=== PATIENT | female | born 1980 | race Caucasian/White ===

== ENCOUNTER 2020-08-09 19:39 | Emergency (ER) | payer OTHER ==
[2020-08-09] MEDS ORDERED: LORazepam 1 MG TAB PO STA (20:17)
[2020-08-09 21:08] LABS: Glucose,Whole Blood 174 mg/dL (75-99)
--- NOTE | 2020-08-09 22:00 | ED ---
General Adult HPI - General Chief complaint: Syncope Stated complaint: Collapsed, Numbing feeling Time Seen by Provider: 08/09/20 19:55 Source: patient, RN notes reviewed, old records reviewed Mode of arrival: wheelchair Limitations: no limitations - History of Present Illness Initial comments: 39-year-old female patient comes to ED for syncopal episode. Patient reports that she was in the hospital seeing her mother. She reports that her mother has a colostomy bag which is new and she was watched in the process of them changes and cleaning of this was very stressful for her. Patient was that she does not do well watching such medical procedures and the smell was very distressing for her. Patient reports that she felt very weak throughout the hallway and then she passed out and fell to the ground only briefly. Does not believe she hit her head or her neck. Denies any chest pain shortness of breath or any other acute complaints. She reports that she is very anxious. Systemic: Pt denies fatigue, fever/chills, rash. Pt denies weakness, night sweats, weight loss. Neuro: Pt denies headache, visual disturbances, syncope or pre-syncope. HEENT: Pt denies ocular discharge or irritation, otalgia, rhinorrhea, pharyngitis or notable lymphadenopathy. Cardiopulmonary: Pt denies chest pain, SOB, heart palpitations, dyspnea on exe rtion. Abdominal/GI: Pt denies abdominal pain, n/v/d. : Pt denies dysuria, burning w/ urination, frequency/urgency. Denies new onset urinary or bowel incontinence. MSK: Pt denies myalgia, loss of strength or function in extremities. Neuro: Pt denies new onset weakness, paresthesias. - Related Data Home Medications Medication Instructions Recorded Confirmed Calcium/Magnesium/Vitamin D3 1 tab PO DAILY 08/09/20 08/09/20 Multivitamins, Thera [Multivitamin 1 tab PO DAILY 08/09/20 08/09/20 (formulary)] Sertraline [Zoloft] 50 mg PO DAILY 08/09/20 08/09/20 Vitamin C/Biotin [Hair, Skin and 1 tab PO DAILY 08/09/20 08/09/20 Nails] Allergies Allergy/AdvReac Type Severity Reaction Status Date / Time No Known Allergies Allergy Verified 08/09/20 20:45 Review of Systems ROS Statement: Those systems with pertinent positive or pertinent negative responses have been documented in the HPI. ROS Other: All systems not noted in ROS Statement are negative. Past Medical History Past Medical History: No Reported History History of Any Multi-Drug Resistant Organisms: None Reported Past Surgical History: No Surgical Hx Reported Past Psychological History: No Psychological Hx Reported Smoking Status: Never smoker Past Alcohol Use History: None Reported Past Drug Use History: None Reported General Exam - General Exam Comments Initial Comments: Constitutional: NAD, AOX3, Pt has pleasant affect. HEENT: NC/AT, trachea midline, neck supple, no lymphadenopathy. External ears appear normal, without discharge. Mucous membranes moist. Eyes PERRLA, EOM intact. There is no scleral icterus. No pallor noted. Cardiopulmonary: RRR, no murmurs, rubs or gallops, no JVD noted. Lungs CTAB in anterior and posterior eason. No peripheral edema. Abdominal exam: Abdomen soft and non-distended. Abdomen non-tender to palpation in all 4 quadrants. Bowel sounds active in LLQ. No hepatosplenomegaly. No ecchymosis Neuro: CN II-XIIintact. No nuchal rigidity. No raccon eyes, no raphael sign, no hemotympanum. No cervical spinal tenderness. MSK: No posterior calf tenderness bilaterally, homans sign negative bilaterally. Posterior tibialis and radial pulse +2 bilaterally. Sensation intact in upper and lower extremities. Full active ROM in upper and lower extremities, 5/5 stregnth. Limitations: no limitations Course Vital Signs 08/09/20 08/09/20 19:44 20:05 Temperature 98.0 F Pulse Rate 68 74 Respiratory 16 22 Rate Blood Pressure 81/51 144/84 O2 Sat by Pulse 98 100 Oximetry Medical Decision Making - Medical Decision Making 39-year-old female patient received for evaluation simple episode. This occurred after watching her mother's colostomy bag be changed. Patient also displayed a little bit of hypotension afterwards were stable. Patient is very anxious and is administered anxiolytic which resolved her symptoms she is feeling very much improved. Denies any acute complaints. Vital signs are stable. EKG is nonischemic. Patient couple for discharge as well as . This is consistent with a vasovagal syncope. Patient was discharged outpatient follow-up and return precautions. Case discussed with Dr. Martinez. - Lab Data Lab Results 09/28/20 Range/Units 21:01 POC Glucose (mg/dL) 174 H (75-99) mg/dL POC Glu Student Ambassador ID Candida Ricketts - EKG Data -: EKG Interpreted by Me (and Dr. Kennedy ) EKG Comments: Ventricular rate 65, WA interval 126, QRS 84, QT/QTc 402/418. Normal sinus rhythm, normal EKG, no concern for acute ischemia. Disposition Clinical Impression: Syncope Disposition: HOME SELF-CARE Condition: Stable Instructions (If sedation given, give patient instructions): Syncope (ED) Additional Instructions: follow-up with primary care provider tomorrow. Return to ER if any worsening symptoms. Is patient prescribed a controlled substance at d/c from ED?: No Referrals: Daniel Huerta Jr, [Primary Care Provider] - 1-2 days
[2020-08-09 22:32] VITALS: BP 116/62; PULSE 72; RESP 17; TEMP 97.8
== END 2020-08-09 22:30 | disposition home or self-care (01) ==
LOC: EC 19:39
DX: R55 Syncope and collapse (principal); F41.9 Anxiety disorder, unspecified; I95.9 Hypotension, unspecified; Z79.899 Other long term (current) drug therapy
CPT/HCPCS: 36415; 93005; 99284

== ENCOUNTER → 2024-11-27 | Outpatient (CLI) | payer OTHER ==
--- NOTE | 2024-11-27 08:13 | MM ---
Reason for Exam: Screening (asymptomatic). Baseline mammogram. Patient History: Menarche at age 15. First Full-Term at age 32. Late child-bearing (after 32). Last menstrual period: 11/26/2024 Risk Values: Katiuska 5 year model risk: 0.8%. NCI Lifetime model risk: 13.5%. Prior Study Comparison: Patient's first Mammogram. No prior studies available for comparison. Tissue Density: The breasts are heterogeneously dense, which may obscure small masses. Findings: Analyzed By CAD. There is no suspicious group of microcalcifications or suspicious mass in either breast. Overall Assessment: Negative, BI-RAD 1 Management: Screening Mammogram of both breasts in 1 year. Some advise annual breast ultrasound surveillance in patient's with background dense tissue. Patient should continue monthly self-breast exams. A clinical breast exam by your physician is recommended on an annual basis. This exam should not preclude additional follow-up of suspicious palpable abnormalities. Note on Katiuska scores and lifetime risk: 1. A Katiuska score greater than 3% is considered moderate risk. If this is the case, consider specialist referral to assess eligibility for a risk reducing agent. 2. If overall lifetime risk for the development of breast cancer is 20% or higher, the patient may qualify for future screening with alternating mammogram and breast MRI. [facility], , 11/27/2024 8:10 AM. Electronically signed and approved by: Jordon Us M.D.
== END | disposition home or self-care (01) ==
LOC: RADMAMWWP 07:13
PROVIDERS: ATTEND Family Medicine
DX: Z12.31 Encounter for screening mammogram for malignant neoplasm of breast (principal); R92.333 Mammographic heterogeneous density, bilateral breasts
CPT/HCPCS: 77067

== ENCOUNTER → 2024-12-09 | Outpatient (CLI) | payer OTHER ==
[2024-12-09 16:12] LABS: Basophils # (A) 0.07 X 10*3/uL (0.00-0.10); Eosinophils # (A) 0.12 X 10*3/uL (0.04-0.35); Eosinophils % (A) 1.8 %; HCT 42.8 % (37.2-46.3); Lymphocytes # (A) 1.76 X 10*3/uL (0.90-5.00); Lymphocytes % (A) 26.3 %; MCH 28.2 pg (27.0-32.0); MCHC 32.7 g/dL (32.0-37.0); MCV 86.1 FL (80.0-97.0); Mean Platelet Volume 11.1 FL (9.5-12.2); Monocytes # (A) 0.71 X 10*3/uL (0.20-1.00); Monocytes % (A) 10.6 %; NRBC Per 100 WBC 0 X 10*3/uL (0.00-0.01); Neutrophils # (A) 4.01 X 10*3/uL (1.80-7.70); Neutrophils % (A) 59.9 %; Platelet Count 276 X 10*3/uL (140-440); RBC 4.97 X 10*6/uL (4.10-5.20); RDW 12.5 % (11.5-14.5)
[2024-12-09 17:49] LABS: % Iron Saturation 31.22 (12.00-45.00); Chol/HDL Ratio 2.06 Ratio; Iron 133 UG/DL (50-170); Total Iron Binding Capacity 426 UG/DL (228-460); VLDL Calculation 12.28 mg/dL (5.00-40.00)
[2024-12-09 17:50] LABS: ALT 17 U/L (8-44); AST 19 U/L (13-35); Albumin 4.7 g/dL (3.8-4.9); Albumin/Globulin Ratio 2.24 Ratio (1.60-3.17); Alkaline Phosphatase 38 U/L (41-126); BUN/Creat Ratio 13.62 Ratio (12.00-20.00); Blood Urea Nitrogen 10.9 mg/dL (9.0-27.0); Calcium 9.7 mg/dL (8.7-10.3); Carbon Dioxide 26.5 mmol/L (21.6-31.8); Chloride 103 mmol/L (96-109); Ferritin 26.4 ng/mL (10.0-291.0); Globulin 2.1 g/dL (1.6-3.3); Glucose 81 mg/dL (70-110); LDL Cholesterol,Calculated 77.7 mg/dL (0.0-131.0); Potassium 4.3 mmol/L (3.5-5.5); Sodium 139 mmol/L (135-145); Total Bilirubin 0.8 mg/dL (0.3-1.2); Total Protein 6.8 g/dL (6.2-8.2)
== END | disposition home or self-care (01) ==
LOC: LABWHC1 08:56
PROVIDERS: ATTEND Student in an Organized Health Care Education/Training Program
DX: Z76.89 Persons encountering health services in other specified circumstances (principal); F41.9 Anxiety disorder, unspecified; E63.9 Nutritional deficiency, unspecified; Z83.438 Family history of other disorder of lipoprotein metabolism and other lipidemia
CPT/HCPCS: 36415; 80053; 80061; 82607; 82728; 83036; 83540; 83550; 84443; 85025